=== PATIENT | female | born 1945 | race Caucasian/White ===

== ENCOUNTER → 2018-09-11 | Outpatient (CLI) | payer MEDICARE ==
[~2018-09-11] MED LIST: IOPAMIDOL 370 MG/ML 200 ML INFUS..BTL INJ ONE; SODIUM CHLORIDE 0.9% 50ML 50 ML ONE
[2018-09-11 16:42] LABS: BLOOD UREA NITROGEN 12 mg/dL (7-26); BUN/CREATININE RATIO 16 (6-25); CREATININE, SERUM 0.75 mg/dL (0.57-1.11); EST GLOMERULAR FILTRATION RATE > 60 ML/MIN (60-)
--- NOTE | 2018-09-11 17:45 | Diagnostic Imaging Report ---
EXAM: CT Abdomen and Pelvis WITH intravenous contrast INDICATION: Abnormal weight loss. COMPARISON: None. TECHNIQUE: Abdomen and pelvis were scanned utilizing a multidetector helical scanner from the lung base to the pubic symphysis after administration of IV contrast. Coronal and sagittal reformations were obtained. Routine protocol was performed. Scan was performed when during portal venous phase. IV CONTRAST: 100mL of Isovue 370 ORAL CONTRAST: Water COMPLICATIONS: None RADIATION DOSE: Total DLP: 153.7 mGy*cm Dose modulation, iterative reconstruction, and/or weight based adjustment of the mA/kV was utilized to reduce the radiation dose to as low as reasonably achievable. FINDINGS: LOWER THORAX: Normal. HEPATOBILIARY: Diffuse hypoattenuation of the hepatic parenchyma consistent with hepatic steatosis. No focal liver lesions. No biliary ductal dilatation. The gallbladder appears unremarkable. SPLEEN: No splenomegaly. PANCREAS: Rim of enhancing pancreatic head tissue surrounding the second part of the duodenum, consistent with annular pancreas. No focal masses or ductal dilatation. ADRENALS: No adrenal nodules. KIDNEYS/URETERS: No hydronephrosis, stones, or solid mass lesions. PELVIC ORGANS/BLADDER: Coarse calcifications in the uterine wall. Bladder is distended and fluid-filled. PERITONEUM / RETROPERITONEUM: No free air or fluid. LYMPH NODES: No lymphadenopathy. VESSELS: Scattered atherosclerotic calcifications of the abdominal aorta and major branches. GI TRACT: Very extensive sigmoid colonic diverticulosis with no definite CT evidence of diverticulitis. No bowel obstruction. BONES AND SOFT TISSUES: Diffuse osteopenia. No acute osseous injury. Mild degenerative changes of the visualized spine. Minimal retrolisthesis of L2 on L3. Severe degenerative changes of the right hip joint with joint space narrowing, subchondral sclerosis, subchondral cystic change, and osteophyte formation. No suspicious lytic or blastic lesions. IMPRESSION: Severe sigmoid colonic diverticulosis with no CT evidence of diverticulitis. Annular pancreas. Hepatic steatosis. Signed by: Orlando Rooney MD on 09/11/2018 5:42 PM
== END ==
LOC: CT 15:13
PROVIDERS: ATTEND Family Medicine
DX: E13.10 Other specified diabetes mellitus with ketoacidosis without coma (principal); R10.13 Epigastric pain
CPT/HCPCS: 36415; 74177; 82565; 84520; Q9967